=== PATIENT | female | born 1965 | race Caucasian/White ===

== ENCOUNTER → 2016-05-26 | Outpatient (CLI) | payer BC ==
[~2016-05-26] MED LIST: BIRTH CONTROL PO; SEASONIQUE1 TAB PO
== END ==
LOC: MC.RAD 16:09
DX: Z12.31 Encounter for screening mammogram for malignant neoplasm of breast (principal)

== ENCOUNTER → 2017-05-18 | Outpatient (CLI) | payer BC | LOC: COL.RAD 11:15 | DX: E04.1 Nontoxic single thyroid nodule (principal) ==

== ENCOUNTER → 2017-06-01 | Outpatient (CLI) | payer BC | LOC: MC.RAD 10:40 | DX: Z12.31 Encounter for screening mammogram for malignant neoplasm of breast (principal) ==

== ENCOUNTER → 2018-07-31 | Outpatient (CLI) | payer BC | LOC: MC.RAD 07:41 | DX: Z12.31 Encounter for screening mammogram for malignant neoplasm of breast (principal) ==

== ENCOUNTER → 2019-09-27 | Outpatient (CLI) | payer BC | LOC: MC.RAD 12:15 | DX: Z12.31 Encounter for screening mammogram for malignant neoplasm of breast (principal) ==

== ENCOUNTER → 2020-12-17 | Outpatient (CLI) | payer BC | LOC: MC.RAD 07:59 | DX: Z12.31 Encounter for screening mammogram for malignant neoplasm of breast (principal); N64.89 Other specified disorders of breast ==

== ENCOUNTER → 2020-12-29 | Outpatient (CLI) | payer BC | LOC: MC.RAD 12-25 09:00 | DX: N63.10 Unspecified lump in the right breast, unspecified quadrant (principal) ==

== ENCOUNTER 2021-06-13 09:38 | Emergency (ER) | payer BC ==
[~2021-06-13] VITALS: Ht 167.6 cm; Wt 72.7 kg
[2021-06-13 09:43] VITALS: TEMP 97.8
[2021-06-13] MEDS ORDERED: EPIPEN 2-PAK1 MG/ML IM (10:34)
[2021-06-13 10:45] VITALS: BP 132/94; PULSE 62
== END 2021-06-13 10:57 | disposition home or self-care (01) ==
LOC: COL.ER 09:38
DX: T78.40XA Allergy, unspecified, initial encounter (principal)
CPT/HCPCS: J1200; J2930

== ENCOUNTER → 2021-12-22 | Outpatient (CLI) | payer BC ==
[~2021-12-22] MED LIST changes: +EPIPEN 2-PAK1 MG/ML IM
== END ==
LOC: MC.RAD 14:08
DX: Z12.31 Encounter for screening mammogram for malignant neoplasm of breast (principal)